=== PATIENT | male | born 1980 | race Caucasian/White ===

== ENCOUNTER 2024-01-04 20:52 | Inpatient (IN) | payer MEDICARE, SELFPAY ==
[2024-01-04] VITALS (8 sets, daily range): BP systolic 116–137; BP diastolic 72–88; BMI 27.2; BMI 27.1
[2024-01-04 17:22] LABS: ALT (SGPT) < 10 U/L (0-50); AST (SGOT) 29 U/L (17-59); Albumin 5.2 g/dl (3.5-5.0); Alkaline Phosphatase 98 U/L (38-126); Blood Urea Nitrogen 55 mg/dl (9-20); Calcium 9.2 mg/dl (8.4-10.2); Carbon Dioxide 23 mmol/L (22-30); Chloride 101 mmol/L (98-107); Creatine Phosphokinase 638 U/L (55-170); Glucose 95 mg/dl (70-99); Lipase 81 U/L (23-300); Potassium 3.5 mmol/L (3.5-5.1); Sodium 136 mmol/L (135-145); Total Bilirubin 0.9 mg/dl (0.2-1.3); Total Protein 7.5 g/dl (6.3-8.2); eGFR 14.06
[2024-01-04 17:23] LABS: Troponin I < 0.012 ng/ml
[2024-01-04 17:42] LABS: % Basophils 0.3 % (0-2); % Immature Granulocytes 0.4 % (0-0.5); % Lymphocytes 21.7 % (20.5-51.1); % Monocytes 7.9 % (1.7-9.3); % Neutrophils 67.7 % (42.2-75.2); Absolute Eosinophils 0.1 10^3/uL (0-0.7); Absolute Lymphocytes 1.5 10^3/uL (1.2-3.4); Absolute Monocytes 0.6 10^3/uL (0.1-0.6); Absolute Neutrophils 4.8 10^3/uL (1.4-6.5); Hematocrit 40.8 % (39.0-52.0); Hemoglobin 14.9 g/dL (13.0-18.0); Mean Corp Hgb Conc. 36.5 g/dL (33.0-37.0); Mean Corpuscular Hgb 32.1 pg (27.0-31.0); Mean Corpuscular Volume 87.9 fL (80.0-94.0); Nucleated Red Blood Cells % 0 % (-); Platelet Count 225 10^3/uL (130-400); Red Blood Cell Count 4.64 10^6/uL (4.70-6.10); Red Cell Dist. Width 12.2 % (11.5-14.5); White Blood Cell Count 7.1 10^3/uL (4.8-10.8)
[2024-01-04 19:02] LABS: Urine Albumin Negative (Neg - Trace); Urine Bilirubin Negative (Negative); Urine Character Clear (Clear); Urine Color Yellow; Urine Glucose Negative (Negative); Urine Ketone Negative (Negative); Urine Leukocyte Negative (Negative); Urine Nitrite Negative (Negative); Urine Occult Blood Negative (Negative); Urine Urobilinogen Negative (Neg - 1+)
--- NOTE | 2024-01-04 19:16 | ED.GENMED ---
History of Present Illness
General
Chief Complaint: Fainting/Passed Out
Source: patient and spouse
Exam Limitations: none
Time Seen by Provider: 01/04/24 18:23
History of Present Illness
History of Present Illness:
43-year-old male with history of Parkinson's disease, traumatic brain injury, history of substance abuse who presents with several episodes of 'fainting episodes'. Patient states this happened at work and happened at the gym. He has a little bit
of nausea the last couple days. Patient has been taking ibuprofen up to 800 mg 3 times a day. Patient also a couple months ago was put on hydrochlorothiazide/olmesartan
Past History
Past History
ED Past Medical History: HTN and Other (Parkinson's, anoxic brain injury after heroin overdose)
ED Past Surgical History: Orthopedic
Social History
Tobacco: Smoker
Drug: Former user
Personal: Single
Living: with family
Employment: Disabled
Family History
Family History: Other (Noncontributory)
Phy Exam
Physical Exam
Physical Exam:
CONSTITUTIONAL Patient alert and oriented to person, place and time. Well-appearing. Vital signs reviewed.
HEAD atraumatic, normocephalic.
EYES eyelids normal to inspection, Pupils equally round and reactive to light, Extraocular muscles intact, Conjunctiva normal, Sclera normal.
NECK normal range of motion, Trachea midline, no jugular venous distention.
RESPIRATORY CHEST No respiratory distress noted, Chest expansion equal, Bilateral breath sounds clear.
CARDIOVASCULAR regular rate and rhythm, Heart sounds normal.
ABDOMEN mild diffuse tenderness, Bowel sounds normal. No distention.
UPPER EXTREMITY range of motion normal, Motor strength normal, no cyanosis, no edema. Mild rigidity bilaterally
LOWER EXTREMITY range of motion normal, Motor strength normal, no cyanosis, no edema. Mild rigidity bilaterally
NEURO Speech normal but low in tone, No focal motor deficits, [place] coma scale 15, Memory normal, Cranial Nerves intact to screening exam.
SKIN skin warm, dry, and normal in color.
PSYCHIATRIC patient oriented to person place and time, Normal affect.
Course
Orders/Labs/Results
Orders:
Orders
01/04/24 16:43
EKG [Electrocardiogram (*1)] Urgent
Reason for Study: Vertigo / Dizzy
01/04/24 16:44
EKG- Treatment ONCE
01/04/24 16:45
CT Head W/o Iv Contrast Urgent
Comment:
Reason For Exam: passed out, unsure if hit head.
01/04/24 16:54
CBC/With Diff [Complete Blood Count/With Diff] Urgent
CMP [Comprehensive Metabolic Panel] Urgent
CPK [Creatine Phosphokinase] Urgent
Lipase Urgent
Troponin I Urgent
01/04/24 18:55
Urinalysis Reflex To Culture Urgent
Date Specimen was Collected: 01/04/24
Time Specimen was Collected: 18:53
01/04/24 19:09
0.9% Sodium Chloride 1000 ml [Nss] 1,000 ml IV BOLUS
Abnormal Lab Results
01/04/24
16:54
RBC 4.64 L 10^6/uL
(4.70-6.10)
MCH 32.1 H pg
(27.0-31.0)
BUN 55 H mg/dl
(9-20)
Creatinine 5.0 H* mg/dL
(0.7-1.3)
Creatine Kinase 638 H U/L
(55-170)
Albumin 5.2 H g/dl
(3.5-5.0)
01/04/24 16:54
01/04/24 16:54
Vital Signs
Initial and Last Documented VS:
Initial Vital Signs
Temp Pulse Resp BP Pulse Ox
98.0 F 65 18 122/76 100
01/04/24 16:38 01/04/24 16:38 01/04/24 16:38 01/04/24 16:38 01/04/24 16:38
Last Documented Vital Signs
Temp Pulse Resp BP Pulse Ox
98.0 F 65 18 116/87 100
01/04/24 16:38 01/04/24 16:38 01/04/24 16:38 01/04/24 19:00 01/04/24 19:15
MDM/Problems Addressed
MDM/Problems Addressed:
Parkinson's disease, acute renal failure, NSAID overuse
*Pulse Oximetry
Patient hypoxic: no
*EKG
Interpreted by ED Provider?: Yes
Rate: normal
Rhythm: sinus
Ramsay: normal axis
Interval: normal interval
Ischemia: no ischemia
*Kelp Or Seagrass Gatherer Interpretation
Rate: normal
Interpretation: normal
Rhythm: sinus
*Critical Care Note
Total Time (30-74mins, 75-104mins- exclusive of procedures): 30 minutes
Data Reviewed
Review of Other/Old Records Reveals: Labs (Labs reviewed from October 2023 showed a creatinine of 0.9 and BUN of 26 (patient's phone from [facility]))
Source: patient
Patient Management
Discussion with other providers: Hospitalist
Escalation/DeEscalation of care consider admission/obs:
43-year-old male with history of Parkinson's who has been taking a lot of ibuprofen daily. Also recently put on olmesartan/hydrochlorothiazide. IV fluids. Admit for acute renal failure as creatinine was 0.9 in October. Bladder scan performed and
empty
ED Attending Note
-
Portions of this chart may have been created with voice recognition software.� Occasional wrong word or��sound alike� substitutions may have occurred due to the inherent limitations of voice recognition software.
Discharge Plan
Departure
Patient Disposition: Admit
Date of Disposition: 01/04/24
Time of Disposition: 19:31
Admit to: Med/Surg
Presentation/result/management discussed w/ accepting MD/DO: Hospitalist
Discharge Problem:
Acute renal failure, Ibuprofen overuse
Prescriptions:
No Action
vilazodone [Viibryd] 40 MG tablet
40 mg PO DAILY
amantadine HCl 100 mg tablet
200 mg PO TID
carbidopa-levodopa 50-200 mg tablet extended release
3 tab PO TID
dextroamphetamine-amphetamine 20 mg tablet
40 mg PO DAILY
rasagiline 1 mg tablet
1 mg PO DAILY
melatonin 10 mg Tablet Extended Release
10 mg PO HS
ibuprofen [Advil] 200 mg Tablet
400 mg PO Q8HPRN PRN (Reason: mildpain)
gabapentin 600 mg Tablet
600 mg PO TID
carvedilol [Coreg] 12.5 mg Tablet
12.5 mg PO BID
aspirin 81 mg Tablet,Delayed Release (Dr/Ec)
81 mg PO DAILY
entacapone 200 mg Tablet
200 mg PO TID
dextroamphetamine-amphetamine [Adderall] 20 mg Tablet
20 mg PO NOON
olmesartan-hydrochlorothiazide [Benicar HCT] 40-12.5 mg Tablet
1 tab PO QPM
bupropion HCl [Wellbutrin XL] 150 mg Tablet Extended Release 24 Hr
450 mg PO DAILY
eszopiclone [Lunesta] 3 mg Tablet
3 mg PO HS
trazodone 100 mg Tablet
100 mg PO HSPRN PRN (Reason: if lunesta does not work)
Referrals:
Gurmeet Ha DO [Family Provider] -
Interventions
Interventions:
*Risk Screen - Suicide Last Done: 01/04/24 16:38
*General Assessment Last Done: 01/04/24 16:38
*Neglect/Abuse Screening Last Done: 01/04/24 18:00
ED- Fall Risk Assessment Last Done: 01/04/24 18:00
*ED COVID-19 Vaccine History Last Done: 01/04/24 18:00
SL-Ylmxje-Lhsfvkjaem Assessment Last Done: 01/04/24 18:00
ED- Cardiac Assessment Last Done: 01/04/24 18:00
ED- Neurological Assessment Last Done: 01/04/24 18:00
ED- Pulmonary Assessment Last Done: 01/04/24 18:00
Discharge Date and Time
Print Language: SIERRA LEONEAN
[2024-01-04] MEDS: NSS 1000 IV ×2 (19:20→22:42)
--- NOTE | 2024-01-04 20:17 | HPS.HSE ---
Family Physician
-
Family Physician: Gurmeet Ha
Chief Complaint
-
syncope
History of Present Illness
43-year-old male past medical history of Parkinson's disease, anoxic brain injury after heroin overdose, prior CVA, chronic body pain, presents with several episodes of fainting episodes. He was started on olmesartan/hydrochlorothiazide in August by
his business services vice president for elevated blood pressure. Over the past few months he has had intermittent fainting episodes lasting a few seconds that occur with exertion sometimes in the gym and even when he is resting or at work. He had several episodes in
the past week. Episodes are preceded by cloudiness in his head. He denies any associated chest pain or shortness of breath. He has been checking his blood pressure at home and it has been as low as 90s.
He has been taking up to 2400 milligrams of ibuprofen per day at times for chronic pain. He has decreased urinary output.
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
He uses medical marijuana. He smokes half a pack of cigarettes per day. He denies alcohol use.
Medical History
Past Medical History
Past Medical History: Reports Other (Parkinson's disease, anoxic brain injury after heroin overdose, prior CVA, chronic body pain,)
Past Surgical History: Reports Orthopedic (will in leg )
Social History
Tobacco: Smoker
Alcohol: None
Drug: Marijuana
Family History
Family History: Not pertinent
Allergies / Home Medications
Allergies reflects when Allergies were last updated in [facility].
Home Medications with original date entered in [facility]
Allergy/Medication List:
Allergies
Allergy/AdvReac Type Severity Reaction Status Date / Time
No Known Allergies Allergy Verified 01/04/24 16:36
Home Medications
vilazodone 40 mg tablet (Viibryd) 40 mg PO DAILY Mental Health/Anxiety 04/26/18
amantadine HCl 100 mg tablet 200 mg PO TID Neurological Condition 03/26/22
carbidopa ER 50 mg-levodopa 200 mg tablet,extended release 3 tab PO TID Neurological Condition 03/26/22
dextroamphetamine-amphetamine 20 mg tablet 40 mg PO DAILY MENTAL HEALTH 03/26/22
melatonin 10 mg tablet,extended release 10 mg PO HS Sleep 03/26/22
rasagiline 1 mg tablet 1 mg PO DAILY Neurological Condition 03/26/22
aspirin 81 mg tablet,delayed release 81 mg PO DAILY 01/04/24
bupropion HCl 150 mg 24 hr tablet, extended release (Wellbutrin XL) 450 mg PO DAILY 01/04/24
carvedilol 12.5 mg tablet (Coreg) 12.5 mg PO BID 01/04/24
dextroamphetamine-amphetamine 20 mg tablet (Adderall) 20 mg PO NOON 01/04/24
entacapone 200 mg tablet 200 mg PO TID 01/04/24
eszopiclone 3 mg tablet (Lunesta) 3 mg PO HS 01/04/24
gabapentin 600 mg tablet 600 mg PO TID 01/04/24
ibuprofen 200 mg tablet (Advil) 400 mg PO Q8HPRN PRN mildpain 01/04/24
olmesartan 40 mg-hydrochlorothiazide 12.5 mg tablet (Benicar HCT) 1 tab PO QPM 01/04/24
trazodone 100 mg tablet 100 mg PO HSPRN PRN if lunesta does not work 01/04/24
Review of Systems
-
History Source: Patient
A 12 point ROS was completed and negative except as noted: Yes
Constitutional: Reports No Symptoms
EENT: Reports No Symptoms
Respiratory: Reports No Symptoms
Cardiac: Reports No Symptoms
Abdomen/GI: Reports No Symptoms
: Reports No Symptoms
Musculoskeletal: Reports No Symptoms
Skin: Reports No Symptoms
Neurological: Reports No Symptoms
Endocrine: Reports No Symptoms
Hematologic/Lymphatic: Reports No Symptoms
Psych: Reports No Symptoms
Physical Exam
Vital Signs
Vital Signs
Temp Pulse Resp BP Pulse Ox
98.0 F 65 18 116/87 100
01/04/24 16:38 01/04/24 16:38 01/04/24 16:38 01/04/24 19:00 01/04/24 19:15
Physical Exam
General: Well Developed, Well Nourished and No Apparent Distress
HEENT: NormoCephalic, Moist mucous membranes and Atraumatic
Respiratory: Clear
Cardiac: S1/S2 and Regular Rhythm; No Murmur or Rub
GI: Soft, Non Tender, Non Distended and Normal Bowel Sounds; No Organomegaly
Rectal: Deferred by Provider
Musculoskeletal: No Clubbing, No Cyanosis and No Edema
Skin: No Rash
Neuro: Nonfocal/grossly intact
Laboratory Results
-
01/04/24 16:54
01/04/24 16:54
Laboratory Results
Total Bilirubin 0.9 mg/dl (0.2-1.3) 01/04/24 16:54
AST 29 U/L (17-59) 01/04/24 16:54
ALT < 10 U/L (0-50) 01/04/24 16:54
Alkaline Phosphatase 98 U/L (38-126) 01/04/24 16:54
Troponin I < 0.012 ng/ml 01/04/24 16:54
Lipase 81 U/L (23-300) 01/04/24 16:54
Data Reviewed
-
Lab Data: Labs Reviewed by me
Old Records: Reviewed
Impression/Plan
-
IMPRESSION:
PLAN:
# Syncopal episodes secondary to hypotension
# Acute kidney injury secondary to NSAIDs/olmesartan/hydrochlorothiazide and hypotension
-Telemetry monitoring
-Hold ibuprofen, olmesartan/hydrochlorothiazide
-IV fluids
-Check renal ultrasound
Parkinson's disease
-Continue amantadine
-Continue carbidopa-levodopa
-Continue entacapone
-Continue rasagiline
Anoxic brain injury after heroin overdose
History of CVA
-Continue aspirin
Chronic pain
-Continue gabapentin
-Tylenol for pain
-Does not tolerate opiates
-Needs to see pain management
Essential hypertension
-Continue Coreg
Anxiety/depression
-Continue bupropion
ADHD
-Continue Adderall
Insomnia
-Continue vilazodone
-Continue Lunesta
Smoker
-Nicotine patch
Medical marijuana use
Full code
DVT prophylaxis�heparin
Renal diet
--- NOTE | 2024-01-04 21:38 | PTCARENOTE ---
Pt arrived from ED via stretcher and ambulated to bed. Pt is AAOx3, VSS, and w/ a family member at bedside. Pt is resting comfortably w/ call villa within reach.
[2024-01-04] MEDS: COMTAN 200 MG PO (22:42)
[2024-01-04] MEDS: AMBIEN 10 MG PO (22:46)
[2024-01-04] MEDS: MELATONIN 10 MG PO (22:47)
[2024-01-04] MEDS: NEURONTIN 200 MG PO (22:47)
[2024-01-04] MEDS: SINEMET CR 50/200 (EXTENDED RELEASE) 3 TABLET PO (22:47)
[2024-01-04] MEDS: SYMMETREL 200 MG PO (23:09)
[2024-01-05] MEDS: DESYREL 100 MG PO (03:03)
[2024-01-05 03:30] VITALS: BP 116/64
[2024-01-05] MEDS: NSS 1000 IV ×3 (05:57→21:07)
[2024-01-05 07:30] VITALS: BP 111/72
[2024-01-05 07:57] LABS: Hematocrit 35.2 % (39.0-52.0); Hemoglobin 12.7 g/dL (13.0-18.0); Mean Corp Hgb Conc. 36.1 g/dL (33.0-37.0); Mean Corpuscular Hgb 32.4 pg (27.0-31.0); Mean Corpuscular Volume 89.8 fL (80.0-94.0); Mean Platelet Volume 10.2 fL (7.4-10.4); Platelet Count 191 10^3/uL (130-400); Red Blood Cell Count 3.92 10^6/uL (4.70-6.10); Red Cell Dist. Width 12.1 % (11.5-14.5); White Blood Cell Count 6.2 10^3/uL (4.8-10.8)
[2024-01-05 08:41] LABS: Blood Urea Nitrogen 42 mg/dl (9-20); Calcium 8.5 mg/dl (8.4-10.2); Carbon Dioxide 21 mmol/L (22-30); Chloride 108 mmol/L (98-107); Estimated Creatinine Clearance 40 ml/min; Glucose 98 mg/dl (70-99); Potassium 3.1 mmol/L (3.5-5.1); Sodium 138 mmol/L (135-145); eGFR 30.81
[2024-01-05] MEDS: SINEMET CR 50/200 (EXTENDED RELEASE) 3 TABLET PO ×3 (09:03→21:52)
[2024-01-05] MEDS: ADDERALL 40 MG PO (09:03)
[2024-01-05] MEDS: NICODERM TRANSDERMAL 7 MG TRANSDERM (09:03)
[2024-01-05] MEDS: COMTAN 200 MG PO ×3 (09:03→21:52)
[2024-01-05] MEDS: RASAGILINE MESYLATE 1 MG PO (09:03)
[2024-01-05] MEDS: SYMMETREL 200 MG PO ×3 (09:03→21:53)
[2024-01-05] MEDS: WELLBUTRIN XL (24 hour extended release) 450 MG PO (09:04)
[2024-01-05] MEDS: HEPARIN 5000 UNITS SC ×2 (09:04→21:53)
[2024-01-05] MEDS: NEURONTIN 200 MG PO ×3 (09:04→21:52)
[2024-01-05] MEDS: ASPIR LOW (ENTERIC COATED) 81 MG PO (09:04)
[2024-01-05] MEDS: COREG 12.5 MG PO ×2 (09:04→21:52)
[2024-01-05 11:30] VITALS: BP 115/68
[2024-01-05] MEDS: ADDERALL 20 MG PO (12:16)
[2024-01-05 15:20] VITALS: BP 127/71
--- NOTE | 2024-01-05 15:56 | W.PN.HOSP.TC ---
Today's Communication/Plan
-
Continue IVF, monitor hemodynamics
Hold KEVON inhibitor and HCTZ
Trend BMP and urine function
Assessment / Plan
Assessment / Plan
#Oliguric prerenal ADAIR
#Syncopal episode
#Hypotension
-Secondary to combination of hot work conditions, NSAIDs/HCTZ/ARB on his home regimen
-Presented with reduced urine output over 2 days, presyncopal episode, creatinine greater than 5
-No urine studies obtained, was started on IV fluids in the ED with creatinine downtrending to 2.6 today
-Urine output has improved and he states he is back to his normal self in that regard
-Blood pressure has improved, normal renal ultrasound; no arrhythmias seen on telemetry
Plan
-Continue with IVF and trend BMP daily while here
-Hold NSAIDs, HCTZ, ARB; monitor blood pressure
-Monitor I's and O's, urinary status
-orthostatic vital signs in the morning
-Telemetry to rule out arrhythmia
#Hypokalemia -- depletional
-Likely from reduced oral intake and diuretic therapy
-Provided 60 mill equivalent KCl today, will replete as needed and follow BMP
#Chronic hypertension
-Holding home HCTZ and ARB for reasons above, remains on carvedilol twice daily
-No known history of hypertensive cardiovascular systemic disease
-Will monitor and consider calcium channel nikolay if BP elevated
#H/O anoxic brain injury
#H/O CVA
#H/O IVDU with opiate withdrawal
-On exam he does have some cognitive slowing, can take a while to find his words
-Concerns from about chronic brain fog, occasional tremor/fainting spells at times
-Suspect that the symptoms could be related to hypotension similar to what brought him here
-No focal deficits or new neurological pathology present
DVT prophylaxis: Heparin subcu
Diet: Regular
CODE STATUS: Full code
Anticipated Discharge: 24 - 48 hours
Subjective/Interval History
-
Date of Service: January 05, 2024
Seen and examined at bedside. No acute events since admission. He states that he feels much better today than he did on previous days. Mentions that about 1 year ago he had a previous incident with lightheadedness that also involved being hot
conditions with his work. Does not recall if he had a kidney injury at that time as well. He denies chest pain or shortness of breath, denies nausea/vomiting/diarrhea, denies fevers or chills. He was initially oliguric upon arrival though states
he has been urinating adequately and close to his normal baseline
Objective Data
-
Labs:
Laboratory Results
01/05/24
07:21
WBC 6.2
Hgb 12.7 L
Hct 35.2 L
Plt Count 191
Sodium 138
Potassium 3.1 L
Chloride 108 H
Carbon Dioxide 21 L
BUN 42 H
Creatinine 2.6 H
Glucose 98
Calcium 8.5
Vital Signs:
Vital Signs
Temp Pulse Resp BP Pulse Ox
98.2 F 67 16 127/71 96
01/05/24 15:20 01/05/24 15:20 01/05/24 15:20 01/05/24 15:20 01/05/24 15:20
I&O
01/04/24 01/05/24 01/06/24
06:59 06:59 06:59
Intake Total 480 / 480
Balance 480 / 480
Review of Systems
-
History Source: Patient
All other systems: Reviewed and negative
Physical Exam
-
General: Well Nourished, No Apparent Distress, Comfortable and Conversant
HEENT: Normocephalic, Atraumatic, Moist Mucous Membranes and Anicteric
Respiratory: Clear to Auscultation and Non Labored Respirations; Negative Wheezes, Rales or Rhonchi
Cardiac: Regular Rhythm and S1/S2; Negative Murmur, Rub, JVD or Gallop
GI: Soft, Nontender, Nondistended and Normal Bowel Sounds
Genito-urinary: No Costovertebral Tender
Musculoskeletal: No Clubbing, No Cyanosis and No Edema
Skin: Warm, Dry and Other (Right-sided cervical tattoo); Negative Rash or Jaundice
Neuro: AO x 3, Nonfocal/Grossly Intact and Central Nerve's Intact
Psych: Calm
Data Reviewed
-
Ultrasound: Report Reviewed by me
Labs: Labs Reviewed by me and Discussed with Patient
[2024-01-05] MEDS: KCL 40 MEQ PO (16:23)
--- NOTE | 2024-01-05 17:13 | CM ---
Edmundo is a 43yo male with PMH of Parkinsons, anoxic brain injury after heroin overdose, prior CVA, chronic body pain with multiple fainting episodes. Medical workup in progress.
He lives with his S.O. 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
CM will follow to determine discharge planning needs based on medical and physical needs identified.
[2024-01-05 19:16] VITALS: BP 115/64
[2024-01-05] MEDS: KCL 20 MEQ PO (21:53)
[2024-01-05] MEDS: AMBIEN 10 MG PO (22:41)
[2024-01-05] MEDS: MELATONIN 10 MG PO (22:41)
[2024-01-05 23:45] VITALS: BP 128/71
[2024-01-06 03:00] VITALS: BP 129/76
[2024-01-06] MEDS: NSS 1000 IV (03:28)
[2024-01-06] MEDS: DESYREL 100 MG PO (04:34)
[2024-01-06 07:10] VITALS: BP 145/82
[2024-01-06 07:17] LABS: % Basophils 0.5 % (0-2); % Eosinophils 2.7 % (0-6); % Immature Granulocytes 0.3 % (0-0.5); % Lymphocytes 39.4 % (20.5-51.1); % Monocytes 7.3 % (1.7-9.3); % Neutrophils 49.8 % (42.2-75.2); Absolute Eosinophils 0.2 10^3/uL (0-0.7); Absolute Lymphocytes 2.3 10^3/uL (1.2-3.4); Absolute Monocytes 0.4 10^3/uL (0.1-0.6); Absolute Neutrophils 2.9 10^3/uL (1.4-6.5); Hematocrit 32.8 % (39.0-52.0); Hemoglobin 11.6 g/dL (13.0-18.0); Mean Corp Hgb Conc. 35.4 g/dL (33.0-37.0); Mean Corpuscular Hgb 31.8 pg (27.0-31.0); Mean Corpuscular Volume 89.9 fL (80.0-94.0); Mean Platelet Volume 10.5 fL (7.4-10.4); Nucleated Red Blood Cells % 0 % (-); Platelet Count 179 10^3/uL (130-400); Red Blood Cell Count 3.65 10^6/uL (4.70-6.10); Red Cell Dist. Width 12.1 % (11.5-14.5); White Blood Cell Count 5.9 10^3/uL (4.8-10.8)
[2024-01-06 07:41] LABS: Blood Urea Nitrogen 26 mg/dl (9-20); Calcium 8.7 mg/dl (8.4-10.2); Carbon Dioxide 23 mmol/L (22-30); Chloride 112 mmol/L (98-107); Estimated Creatinine Clearance 94 ml/min; Glucose 95 mg/dl (70-99); Magnesium 1.8 mg/dl (1.6-2.3); Sodium 139 mmol/L (135-145); eGFR > 60.00
[2024-01-06 08:00] LABS: Potassium 4.1 mmol/L (3.5-5.1)
[2024-01-06] MEDS: SYMMETREL 200 MG PO (10:28)
[2024-01-06] MEDS: RASAGILINE MESYLATE 1 MG PO (10:28)
[2024-01-06] MEDS: WELLBUTRIN XL (24 hour extended release) 450 MG PO (10:28)
[2024-01-06] MEDS: SINEMET CR 50/200 (EXTENDED RELEASE) 3 TABLET PO (10:28)
[2024-01-06] MEDS: COMTAN 200 MG PO (10:28)
[2024-01-06] MEDS: NEURONTIN 200 MG PO (10:28)
[2024-01-06] MEDS: COREG 12.5 MG PO (10:28)
[2024-01-06] MEDS: HEPARIN 5000 UNITS SC (10:29)
[2024-01-06] MEDS: ASPIR LOW (ENTERIC COATED) 81 MG PO (10:29)
[2024-01-06] MEDS: ADDERALL 40 MG PO (10:30)
[2024-01-06] MEDS: NICODERM TRANSDERMAL TRANSDERM (10:32)
--- NOTE | 2024-01-06 11:00 | W.PN.HOSP.TC ---
Today's Communication/Plan
-
Discharge home
Encourage oral hydration
Discontinue NSAIDs, HCTZ, olmesartan
Outpatient neurology follow-up
Assessment / Plan
Assessment / Plan
#Oliguric prerenal ADAIR
#Syncopal episode
#Hypotension
-Secondary to combination of hot work conditions, NSAIDs/HCTZ/ARB on his home regimen
-Presented with reduced urine output over 2 days, presyncopal episode, creatinine greater than 5
-No urine studies obtained, was started on IV fluids in the ED with creatinine downtrending to 2.6 today
-Urine output has improved and he states he is back to his normal self in that regard
-Blood pressure has improved, normal renal ultrasound
-Orthostats were negative, telemetry consistently with NSR
Plan
-Continue with IVF and trend BMP daily while here
-Hold NSAIDs, HCTZ, ARB; monitor blood pressure
-Monitor I's and O's, urinary status
#H/O anoxic brain injury
#H/O CVA
#H/O IVDU with opiate OD
-On exam he does have some cognitive slowing, can take a while to find his words
-Concerns from about chronic brain fog, occasional tremor/fainting spells at times
-Suspect that the symptoms could be related to hypotension similar to what brought him here
-No signs of seizures/tremors while here, no new focal neurological deficits
Plan
-Provide outpatient prescription for MRI brain without contrast
-Provide referral for in network neurologist if needed
#Chronic hypertension
-Holding home HCTZ and ARB for reasons above, remains on carvedilol twice daily
-No known history of hypertensive cardiovascular systemic disease
-Will monitor and consider calcium channel nikolay if BP elevated
DVT prophylaxis: Heparin subcu
Diet: Regular
CODE STATUS: Full code
Anticipated Discharge: Today
Subjective/Interval History
-
Date of Service: January 06, 2024
No acute events overnight. Patient was sleeping upon time of my assessment. Woke up properly though seemed a little bit lethargic. He denied fevers or chills, denied chest pain, denied shortness of breath. States that he feels much better than
when he came into the hospital.
I spoke with him about chronic sounding neurological issues that include times where he is absent, occasional tremors, chronic brain fog. Told him that there is likely no acute neurological processes, has not had any signs of seizure or strokelike
events while here. I did notice 1 episode yesterday when he had difficulty finding words though he quickly regained his cognition, had no postictal type symptoms.
Ultimately, he should follow-up with his neurologist. States that his neurologist is difficult to get to the office with, I will provide him for a local referral and give him an MRI of the brain without contrast to have done prior to that visit.
Objective Data
-
Labs:
Laboratory Results
01/06/24
06:45
WBC 5.9
Hgb 11.6 L
Hct 32.8 L
Plt Count 179
Sodium 139
Potassium 4.1 D
Chloride 112 H
Carbon Dioxide 23
BUN 26 H
Creatinine 1.1
Glucose 95
Calcium 8.7
Vital Signs:
Vital Signs
Temp Pulse Resp BP Pulse Ox
98.3 F 62 16 145/82 92
01/06/24 07:10 01/06/24 07:10 01/06/24 07:10 01/06/24 07:10 01/06/24 07:10
I&O
01/05/24 01/06/24 01/07/24
06:59 06:59 06:59
Intake Total 480 / 480 2240 / 2240
Output Total 500 / 500
Balance 480 / 480 1740 / 1740
Review of Systems
-
History Source: Patient
All other systems: Reviewed and negative
Physical Exam
-
General: Well Developed, Well Nourished and Comfortable
HEENT: Normocephalic, Atraumatic, Moist Mucous Membranes and Anicteric
Respiratory: Clear to Auscultation and Non Labored Respirations; Negative Wheezes, Rales or Rhonchi
Cardiac: Regular Rhythm and S1/S2; Negative Murmur, Rub, JVD or Gallop
GI: Soft, Nontender, Nondistended, Normal Bowel Sounds and No Hepatosplenomegaly
Musculoskeletal: No Clubbing, No Cyanosis, No Edema and Other (No gross deformities)
Skin: Warm and Dry; Negative Rash or Jaundice
Neuro: AO x 3, Nonfocal/Grossly Intact and Central Nerve's Intact; Negative Tremors
Data Reviewed
-
Labs: Labs Reviewed by me and Discussed with Patient
--- NOTE | 2024-01-06 11:15 | W.DCSUMMARY ---
Discharge Summary
Discharge Data
Date of Admission: 01/04/24
Date of Discharge: 01/06/24
-
Pending Results: No
Additional Pending Results:
BMP in 5 days after discharge
Hospital Course
43-year-old male with H/O anoxic brain injury/CVA, Parkinson's disease, hypertension, history of intravenous drug use that presented with syncope/presyncopal episodes that occurred in the context of severe dehydration, nephrotoxic antihypertensive
regimen, NSAID use. Was noted to be working outside in the heat when symptoms worsened. Developed presyncope, came into the ED. Was found to have serum creatinine near 5 with known baseline being normal. Home medications (frequent NSAIDs, HCTZ,
olmesartan) were held on admission and he was started with IV fluids. Renal ultrasound without any signs of obstructive hydronephrosis. His renal function returned to normal after 2 days of IV fluids.
Also mentioned chronic neurological issues such as intermittent tremor, chronic mental fog, times of cognitive delay that raise concern for absence seizure's. I did notice 1 episode where he took a while to find his words, then asked what we were
talking about, however he was then able to hold conversation. No signs or symptoms of postictal phase. I suspect these are chronic issues concerning his history of anoxic brain injury. I provided referral for neurology as outpatient and
prescription for MRI brain without contrast to be had after discharge.
Discharge Plan
-
Patient Disposition: Home (Routine Discharge)
Discharge Diagnosis/Procedures: Oliguric prerenal ADAIR
Hypotension
Syncope/presyncope
Condition: Fair
Diet: No restrictions
Additional Diets: 64 ounce water daily
Activity: As tolerated
Driving Restrictions: As prior to admission
Bathing Restrictions: None
Blood Work: BMP in 5 days after discharge, recheck renal function
Others Tests: MRI brain without contrast, have results sent to neurologist
Referrals:
Kei Palacios MD [Active] - in less than 1 week (If new neurologist needed)
Gurmeet Ha DO [Family Provider] -
Prescriptions:
New
nicotine 7 mg/24 hr Patch 24 Hour
7 mg transdermal DAILY Qty: 10 0RF
Continued
vilazodone [Viibryd] 40 MG tablet
40 mg PO DAILY
amantadine HCl 100 mg tablet
200 mg PO TID
carbidopa-levodopa 50-200 mg tablet extended release
3 tab PO TID
dextroamphetamine-amphetamine 20 mg tablet
40 mg PO DAILY
rasagiline 1 mg tablet
1 mg PO DAILY
melatonin 10 mg Tablet Extended Release
10 mg PO HS
gabapentin 600 mg Tablet
600 mg PO TID
carvedilol [Coreg] 12.5 mg Tablet
12.5 mg PO BID
aspirin 81 mg Tablet,Delayed Release (Dr/Ec)
81 mg PO DAILY
entacapone 200 mg Tablet
200 mg PO TID
dextroamphetamine-amphetamine [Adderall] 20 mg Tablet
20 mg PO NOON
bupropion HCl [Wellbutrin XL] 150 mg Tablet Extended Release 24 Hr
450 mg PO DAILY
eszopiclone [Lunesta] 3 mg Tablet
3 mg PO HS
trazodone 100 mg Tablet
100 mg PO HSPRN PRN (Reason: if lunesta does not work)
Discontinued
ibuprofen [Advil] 200 mg Tablet
400 mg PO Q8HPRN PRN (Reason: mildpain)
olmesartan-hydrochlorothiazide [Benicar HCT] 40-12.5 mg Tablet
1 tab PO QPM
Discharge Orders:
Discharge Patient (As Directed); Ordered 01/06/24
Ordered By: David Dyer
Discharge Date and Time
Print Language: MALAWIAN
[2024-01-06 11:33] VITALS: BP 126/84
[2024-01-06] MEDS: ADDERALL 20 MG PO (13:05)
--- NOTE | 2024-01-06 13:49 | CM ---
Patient seen at bedside with physician. Plan is for discharge home with no needs at this time. CM will continue to follow for discharge planning needs.
Plan; home with no needs
== END 2024-01-06 14:01 | disposition home or self-care (01) | DRG 684 ==
LOC: 4 EAST ACU 20:52
PROVIDERS: Emergency Medicine; ADMITTING PHYSICIAN Hospitalist; ATTENDING PHYSICIAN Internal Medicine; EMERGENCY PHYSICIAN Emergency Medicine; FAMILY PHYSICIAN Family Medicine
DX: N17.9 Acute kidney failure, unspecified (principal); I10 Essential (primary) hypertension; G20.A1 Parkinson's disease without dyskinesia, without mention of fluctuations; E86.0 Dehydration; I95.9 Hypotension, unspecified
CPT/HCPCS: 70450; 76770; 80048; 80053; 81003; 82550; 83690; 83735; 84484; 85025; 85027; 87070; 93005; 96360; 99291

== ENCOUNTER → 2024-01-18 13:34 | Outpatient (REF) | payer MEDICARE, OTHER, SELFPAY | LOC: HWRAD 13:34 | PROVIDERS: ATTENDING PHYSICIAN Family Medicine | DX: M54.50 Low back pain, unspecified (principal) | CPT/HCPCS: 72110 ==

== ENCOUNTER 2024-02-06 08:04 | Outpatient (RCR) | payer MEDICARE, OTHER, SELFPAY | END 2024-02-06 23:59 | disposition home or self-care (01) | LOC: RPT 08:04 | PROVIDERS: ATTENDING PHYSICIAN Psychiatry & Neurology Neurology; FAMILY PHYSICIAN Family Medicine | DX: G20.C Parkinsonism, unspecified (principal); Z73.6 Limitation of activities due to disability | CPT/HCPCS: 97110; 97112; 97163; 97530 ==

== ENCOUNTER → 2024-03-07 08:22 | Outpatient (REF) | payer MEDICARE, OTHER, SELFPAY | LOC: EMG 08:22 | PROVIDERS: ATTENDING PHYSICIAN Physical Medicine & Rehabilitation Pain Medicine; FAMILY PHYSICIAN Family Medicine | DX: G89.29 Other chronic pain (principal); M54.50 Low back pain, unspecified; R20.0 Anesthesia of skin; R20.2 Paresthesia of skin | CPT/HCPCS: 95886; 95911 ==

== ENCOUNTER 2024-03-11 06:57 | Outpatient (RCR) | payer MEDICARE, OTHER, SELFPAY | END 2024-03-11 23:59 | disposition home or self-care (01) | LOC: RST 06:57 | PROVIDERS: ATTENDING PHYSICIAN Psychiatry & Neurology Neurology; FAMILY PHYSICIAN Family Medicine | DX: G20.C Parkinsonism, unspecified (principal); R47.1 Dysarthria and anarthria; R41.9 Unspecified symptoms and signs involving cognitive functions and awareness | CPT/HCPCS: 92507; 92522; 96125; 97010; 97110; 97112; 97129; 97130; 97140; 97166; 97530; 97535 ==

== ENCOUNTER 2024-04-05 07:06 | Outpatient (RCR) | payer MEDICARE, OTHER, SELFPAY | END 2024-04-05 23:59 | disposition home or self-care (01) | LOC: RST 07:06 | PROVIDERS: ATTENDING PHYSICIAN Psychiatry & Neurology Neurology; FAMILY PHYSICIAN Family Medicine | DX: Z73.6 Limitation of activities due to disability (principal); R47.1 Dysarthria and anarthria; R41.9 Unspecified symptoms and signs involving cognitive functions and awareness; G21.8 Other secondary parkinsonism | CPT/HCPCS: 92507; 97010; 97110; 97112; 97129; 97130; 97140; 97530 ==

== ENCOUNTER 2024-05-02 16:49 | Emergency (ER) | payer SELFPAY ==
[2024-05-02 16:50] VITALS: BP 162/98
[2024-05-02 16:51] VITALS: BP 162/98
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
[2024-05-02 17:00] VITALS: BP 161/101
[2024-05-02 17:21] VITALS: BMI 27.4
[2024-05-02 17:42] VITALS: BP 143/104
== END 2024-05-02 17:50 | disposition home or self-care (01) ==
LOC: EMR 16:49
PROVIDERS: EMERGENCY PHYSICIAN Student in an Organized Health Care Education/Training Program; FAMILY PHYSICIAN Family Medicine
DX: S09.90XA Unspecified injury of head, initial encounter (principal); V89.2XXA Person injured in unspecified motor-vehicle accident, traffic, initial encounter; Y92.410 Unspecified street and highway as the place of occurrence of the external cause; I10 Essential (primary) hypertension; G20.A1 Parkinson's disease without dyskinesia, without mention of fluctuations; G93.1 Anoxic brain damage, not elsewhere classified; F17.200 Nicotine dependence, unspecified, uncomplicated
CPT/HCPCS: 99284; 70450

== ENCOUNTER 2024-05-10 09:15 | Outpatient (RCR) | payer OTHER, SELFPAY | END 2024-05-10 23:59 | disposition home or self-care (01) | LOC: RST 09:15 | PROVIDERS: ATTENDING PHYSICIAN Psychiatry & Neurology Neurology; FAMILY PHYSICIAN Family Medicine | DX: G20.C Parkinsonism, unspecified (principal); R47.1 Dysarthria and anarthria; R41.89 Other symptoms and signs involving cognitive functions and awareness; Z73.6 Limitation of activities due to disability | CPT/HCPCS: 92507; 97110; 97112; 97129; 97130; 97140; 97530 ==

== ENCOUNTER 2024-06-04 09:14 | Outpatient (RCR) | payer OTHER, SELFPAY | END 2024-06-06 07:40 | disposition home or self-care (01) | LOC: RST 09:14 | PROVIDERS: ATTENDING PHYSICIAN Psychiatry & Neurology Neurology; FAMILY PHYSICIAN Family Medicine | DX: G20.C Parkinsonism, unspecified (principal); R47.1 Dysarthria and anarthria; R41.89 Other symptoms and signs involving cognitive functions and awareness; Z73.6 Limitation of activities due to disability | CPT/HCPCS: 92507; 97110; 97112; 97129; 97130; 97140 ==

== ENCOUNTER → 2024-07-10 16:22 | Outpatient (REF) | payer OTHER, SELFPAY | LOC: RAD 16:22 | PROVIDERS: ATTENDING PHYSICIAN Internal Medicine Rheumatology; FAMILY PHYSICIAN Family Medicine | DX: M79.641 Pain in right hand (principal); M79.642 Pain in left hand | CPT/HCPCS: 72050; 72072; 72100; 72202; 73130 ==

== ENCOUNTER 2024-08-14 09:35 | Outpatient (RCR) | payer OTHER, SELFPAY | END 2024-09-09 09:38 | disposition home or self-care (01) | LOC: RST 09:35 | PROVIDERS: ATTENDING PHYSICIAN Family Medicine | DX: G20.C Parkinsonism, unspecified (principal); R47.1 Dysarthria and anarthria; R41.9 Unspecified symptoms and signs involving cognitive functions and awareness ==

== ENCOUNTER 2024-09-04 13:10 | Outpatient (RCR) | payer MEDICARE, OTHER, SELFPAY | END 2024-09-04 23:59 | disposition home or self-care (01) | LOC: RPT 13:10 | PROVIDERS: ATTENDING PHYSICIAN Orthopaedic Surgery; FAMILY PHYSICIAN Family Medicine | DX: M25.511 Pain in right shoulder (principal); Z73.6 Limitation of activities due to disability; M62.81 Muscle weakness (generalized); R20.2 Paresthesia of skin; R20.0 Anesthesia of skin; G20.A1 Parkinson's disease without dyskinesia, without mention of fluctuations | CPT/HCPCS: 97110; 97112; 97162; 97530 ==

== ENCOUNTER 2024-10-09 14:04 | Outpatient (RCR) | payer OTHER, SELFPAY | END 2024-10-09 23:59 | disposition home or self-care (01) | LOC: RPT 14:04 | PROVIDERS: ATTENDING PHYSICIAN Orthopaedic Surgery; FAMILY PHYSICIAN Family Medicine | DX: M25.511 Pain in right shoulder (principal); Z73.6 Limitation of activities due to disability; M62.81 Muscle weakness (generalized); G20.A1 Parkinson's disease without dyskinesia, without mention of fluctuations; I69.398 Other sequelae of cerebral infarction | CPT/HCPCS: 97110; 97112; 97140; 97530 ==

== ENCOUNTER 2024-10-16 09:00 | Outpatient (RCR) | payer OTHER, SELFPAY | END 2024-10-16 23:59 | disposition home or self-care (01) | LOC: RST 09:00 | PROVIDERS: ATTENDING PHYSICIAN Orthopaedic Surgery; FAMILY PHYSICIAN Family Medicine | DX: G20.C Parkinsonism, unspecified (principal) ==

== ENCOUNTER 2024-11-08 10:07 | Outpatient (RCR) | payer OTHER, SELFPAY | END 2024-11-08 23:59 | disposition home or self-care (01) | LOC: RPT 10:07 | PROVIDERS: ATTENDING PHYSICIAN Orthopaedic Surgery; FAMILY PHYSICIAN Family Medicine | DX: M25.511 Pain in right shoulder (principal); Z73.6 Limitation of activities due to disability; M62.81 Muscle weakness (generalized); G20.A1 Parkinson's disease without dyskinesia, without mention of fluctuations; I69.398 Other sequelae of cerebral infarction | CPT/HCPCS: 97110; 97112; 97140; 97530 ==

== ENCOUNTER 2024-12-05 08:10 | Outpatient (RCR) | payer OTHER, SELFPAY | END 2024-12-05 23:59 | disposition home or self-care (01) | LOC: RPT 08:10 | PROVIDERS: ATTENDING PHYSICIAN Orthopaedic Surgery; FAMILY PHYSICIAN Family Medicine | DX: M25.511 Pain in right shoulder (principal); M62.81 Muscle weakness (generalized); G20.A1 Parkinson's disease without dyskinesia, without mention of fluctuations; I69.398 Other sequelae of cerebral infarction; Z73.6 Limitation of activities due to disability | CPT/HCPCS: 97110; 97530 ==

== ENCOUNTER 2025-04-17 00:08 | Emergency (ER) | payer OTHER, SELFPAY ==
[2025-04-17 00:15] VITALS: BP 176/110
--- NOTE | 2025-04-17 00:40 | ED.GENMED ---
History of Present Illness
General
Chief Complaint: Oral/Mouth Problem
Time Seen by Provider: 04/17/25 00:40
History of Present Illness
History of Present Illness:
FOCUSED PAST MEDICAL HISTORY
- Parkinsonism, TBI, high blood pressure, history of subs abuse
REVIEW OF OLD RECORDS
- I reviewed records, the patient has been getting physical therapy here over the past year
Note:
CHIEF COMPLAINT(S)
Swelling and pain in the mouth with presumed infection.
HISTORY OF PRESENT ILLNESS
The patient is a 45-year-old male presenting with swelling and pain in the mouth, concerning for infection, potentially originating from dental issues. These symptoms have made it difficult for the patient to eat, sleep, and work. Recently, the
patient sought care at a dental center, where they identified significant issues with teeth numbered 3, 5, and 8, among others. The patient has a significant history of substance abuse, which raises concerns about pain management compliance.
Additionally, the patient reported being on Augmentin (amoxicillin-clavulanate) and dexamethasone, initiated after a recent visit to an urgent care facility a week and a half ago, without significant improvement. The patient previously experienced
an acute kidney injury, which contraindicates the use of nonsteroidal anti-inflammatory drugs (NSAIDs) and possibly limits the use of contrast. There is also an interest in further intervention like oral surgery but logistical challenges with
insurance and the availability of services.
PAST MEDICAL AND SURGICAL HISTORY
- Acute kidney injury.
CHRONIC MEDICAL CONDITIONS SIGNIFICANTLY AFFECTING CARE
- History of substance abuse.
SOCIAL DETERMINANTS AFFECTING HEALTH
- History of substance abuse which may impact pain management and compliance with treatment.
MEDICATIONS
- Augmentin (Amoxicillin-Clavulanate) for approximately 1.5 weeks.
- Dexamethasone for inflammation.
REVIEW OF SYSTEMS
- Oral cavity: Significant dental issues leading to pain and swelling.
- Gastrointestinal: Difficulty eating.
- General: Difficulty sleeping and working due to the oral pain and infection.
PHYSICAL EXAM
General: Alert, no acute distress. Somewhat of a flat affect, appears fairly comfortable
Skin: Warm, dry.
Head: Normocephalic, atraumatic.
Neck: Supple, trachea midline.
Eye Ears, Nose, Mouth and Throat: Markedly poor dentition with several caries, some gingival inflammation, no facial abscess palpable
Cardiovascular: Normal peripheral perfusion, No edema.
Respiratory: Respirations are non-labored.
Gastrointestinal: Abdomen nondistended.
Back: Normal range of motion, Normal alignment.
Musculoskeletal: Normal range of motion, normal strength.
Neurological: Alert and oriented to person, place, time, and situation, No focal neurological deficit observed.
Psychiatric: Cooperative, appropriate mood & affect.
PLAN
- Administer an intravenous dose of clindamycin to address the oral infection while in the emergency department.
- Discuss the case with oral surgery for possible input on further management.
- Consider basic blood work to monitor kidney function due to the history of acute kidney injury if future procedures requiring contrast are considered.
- Advise follow-up with dental services for potential extractions and future prosthetic decisions once the infection is controlled.
- Educate the patient on the importance of avoiding opioids due to history of substance abuse and potential for misuse.
DIFFERENTIAL DIAGNOSIS
The Differential Diagnosis includes, in no particular order and is not limited to:
- Dental abscess
- Periapical abscess
- Alveolar osteitis (dry socket)
- Osteomyelitis of the jaw
- Sinusitis with dental source
- Periodontitis
- Oral cellulitis
- Gilmar�s angina
- Gingivitis
- Temporomandibular joint disorder
Disposition:
SUMMARY OF ENCOUNTER
The patient, a 45-year-old male, presented to the emergency department with swelling and pain in the mouth, concerning for an oral infection likely related to significant dental issues. The patient has a history of substance abuse, complicating pain
management considerations. Recent attempts to manage the condition with amoxicillin-clavulanate and dexamethasone have not provided significant relief, and the patient has difficulty eating and sleeping due to the pain. In the emergency department,
clindamycin, a potent antibiotic, was considered for prescription due to an elevated white blood cell count and past ineffective treatment. There is an elevated risk with continued antibiotic use due to potential adverse effects like Clostridioides
difficile infection. Contact information for an oral surgeon, Dr. Guzman Raygoza, was provided for further consultation regarding potential oral surgery, acknowledging insurance challenges with [id number] providers.
DISPOSITION
Discharge.
ASSESSMENT
The patient presents with symptoms indicative of a dental infection, potentially involving teeth previously identified as problematic. Elevated white blood cell count suggests an ongoing infection. Considering the patients history of substance
abuse, careful management of pain and antibiotics is necessary.
EMERGENCY TREATMENTS ADMINISTERED
Intravenous clindamycin was administered for the oral infection while in the emergency department.
MANAGEMENT OF THE PATIENTS CARE WAS DISCUSSED WITH
The case was discussed with an oral surgeon, Dr. Guzman Raygoza, for follow-up consultation regarding potential surgical intervention for the dental issues.
PLAN
The patient was advised to follow up with oral surgery for further management of dental issues after discussing logistical challenges with insurance regarding [id number] providers. Clindamycin was prescribed, and probiotics like Florastor were
recommended to balance gut go during antibiotic treatment. Educated on avoiding non-recommended analgesics, particularly opioids and NSAIDs due to history and contraindications.
INDEPENDENT REVIEW OF LABS AND INTERPRETATION OF TESTS
My independent review of CBC reveals leukocytosis with a white blood cell count of 14,000, consistent with an active infection and steroid use.
PATIENT EDUCATION AND COUNSELING
The patient was educated on the risks associated with prolonged antibiotic use, including the potential for Clostridioides difficile infection. The importance of following up with dental services and maintaining gut health with probiotics was
emphasized. Additionally, the patient was informed about the implications of his substance abuse history on medication compliance and pain management.
FOLLOW-UP INSTRUCTIONS
The patient should contact oral surgeon Dr. Guzman Raygoza for an appointment. Follow-up with dental services is crucial for potential extractions and prosthetic decisions once the infection is managed.
MEDICATION RECONCILIATION
Clindamycin was prescribed to the patient for infection management in accordance with the elevated white blood cell count indicating an infection.
MEDICAL DECISION MAKING
-Chronic conditions affecting care include history of substance abuse. Differential Diagnosis includes dental abscess, periapical abscess, alveolar osteitis, osteomyelitis of the jaw, sinusitis with dental source, periodontitis, oral cellulitis,
Gilmar�s angina, gingivitis, temporomandibular joint disorder.
-Data:
Category 1
My independent review of CBC indicated leukocytosis with a white blood cell count of 14,000.
Category 2
No additional sources apart from the patient were mentioned for information.
Category 3
Management of the patients care was discussed with an oral surgeon for further intervention.
-Risk:
Prescription drug management initiated with clindamycin for infection.
Consideration of Admission/Observation: Escalation of care including admission/observation was considered given the complexity and risk of the patients presenting complaint, exam findings, and underlying comorbidities. However, ultimately, the
patient is deemed safe for outpatient management with close follow-up, as the work-up is reassuring and does not reveal any acute life/organ-threatening processes. The patients symptoms are well controlled upon reevaluation, reexamination is
reassuring, vitals are stable, and the patient is agreeable with discharge and reliable for follow-up. Care significantly affected by social determinants of health, primarily the patients history of substance abuse which may impact compliance with
treatment and pain management.
DIAGNOSIS
- Dental abscess (K04.7)
- Substance abuse complicating care (F19.10)
- Acute oral infection (K12.2)
I sent a message to Dr. Yousif for [facility] to help arrange closer outpatient follow-up however this message was not immediately responded to. We gave an IV dose of clindamycin and I did send a prescription for oral clindamycin to his pharmacy. We
talked about using a probiotic to help prevent C. difficile infection. There is no palpable facial abscess on examination and I do not feel that CT imaging will alter course. The significant other indicates that the patient did have a recent CT.
One of the big complicating factors is lack of good insurance or lack of financial capability to have his needed dental procedures performed. No clear indication to for admission to the hospital.
Past History
Past History
ED Past Medical History: HTN and Other (Parkinson's, anoxic brain injury after heroin overdose)
ED Past Surgical History: Orthopedic
Social History
Tobacco: Smoker
Drug: Former user
Personal: Single
Living: with family
Employment: Disabled
Family History
Family History: Other (Noncontributory)
Phy Exam
Physical Exam
Physical Exam:
See HPI
Course
Orders/Labs/Results
Orders:
Orders
04/17/25 00:57
Basic Metabolic Panel Urgent
Complete Blood Count/With Diff Urgent
04/17/25 01:07
Clindamycin Phosphate [Cleocin] 300 mg 0.9% Sodium Chloride [Nss] 50 ml IV NOW
04/17/25 01:49
Ketorolac [Toradol] 15 mg IV NOW STA
04/17/25 02:12
Viscous Lidocaine 2% [Xylocaine Viscous Cup] 15 ml PO Q3HPRN PRN
Abnormal Lab Results
04/17/25
00:57
WBC 14.3 H 10^3/uL
(4.8-10.8)
Abs Immat Gran (auto) 0.4 H 10^3/uL
(0-0.05)
Absolute Neuts (auto) 9.3 H 10^3/uL
(1.4-6.5)
Absolute Monos (auto) 1.1 H 10^3/uL
(0.1-0.6)
Immature Gran % 2.9 H %
(0-0.5)
BUN 21 H mg/dl
(9-20)
04/17/25 00:57
04/17/25 00:57
Vital Signs
Initial and Last Documented VS:
Initial Vital Signs
Temp Pulse Resp BP Pulse Ox
36.3 C 97 18 176/110 99
04/17/25 00:15 04/17/25 00:15 04/17/25 00:15 04/17/25 00:15 04/17/25 00:15
Last Documented Vital Signs
Temp Pulse Resp BP Pulse Ox
36.3 C 90 18 152/100 99
04/17/25 00:15 04/17/25 01:02 04/17/25 01:02 04/17/25 01:03 04/17/25 00:42
*Pulse Oximetry
SaO2: 99
Oxygen Mode of Delivery: Room air
Patient hypoxic: no
*Critical Care Note
Total Time (30-74mins, 75-104mins- exclusive of procedures): Not Applicable
ED Attending Note
-
Portions of this chart may have been created with voice recognition software.� Occasional wrong word or��sound alike� substitutions may have occurred due to the inherent limitations of voice recognition software.
Discharge Plan
Departure
Patient Disposition: Home (Routine Discharge)
Date of Disposition: 04/17/25
Time of Disposition: 02:13
Patient with high blood pressure during this ER visit?: Yes
Discharge Problem:
Need for assessment by dentistry for poor dentition
Instructions: Tooth Abscess (DC), Dental Pain (DC), BLOOD PRESSURE
Prescriptions:
New
clindamycin HCl [Cleocin HCl] 300 mg capsule
300 mg PO TID 7 Days Qty: 21 0RF
No Action
vilazodone [Viibryd] 40 MG tablet
40 mg PO DAILY
amantadine HCl 100 mg tablet
200 mg PO TID
carbidopa-levodopa 50-200 mg tablet extended release
3 tab PO TID
dextroamphetamine-amphetamine 20 mg tablet
40 mg PO DAILY
rasagiline 1 mg tablet
1 mg PO DAILY
melatonin 10 mg Tablet Extended Release
10 mg PO HS
gabapentin 600 mg Tablet
600 mg PO TID
carvedilol [Coreg] 12.5 mg Tablet
12.5 mg PO BID
aspirin 81 mg Tablet,Delayed Release (Dr/Ec)
81 mg PO DAILY
entacapone 200 mg Tablet
200 mg PO TID
dextroamphetamine-amphetamine [Adderall] 20 mg Tablet
20 mg PO NOON
bupropion HCl [Wellbutrin XL] 150 mg Tablet Extended Release 24 Hr
450 mg PO DAILY
eszopiclone [Lunesta] 3 mg Tablet
3 mg PO HS
trazodone 100 mg Tablet
100 mg PO HSPRN PRN (Reason: if lunesta does not work)
nicotine 7 mg/24 hr Patch 24 Hour
7 mg transdermal DAILY Qty: 10 0RF
Referrals:
Guzman Yuosif MD, DDS [Active, Oral Surgery]
Gurmeet Ha, DO [Family Provider, Family Practice]
Activity Restrictions/Additional Instructions:
Your white blood cell count is slightly high at 14.3 but you do not have a fever. It is very common for white blood cell count to be elevated after using steroids. We did give IV Toradol and IV clindamycin tonight. I am sending a prescription for
clindamycin to your pharmacy. Your kidney function is normal therefore I feel that you can take NSAIDs. Consider taking Florastor or some [id number] probiotic to help prevent C. difficile infection.
I strongly recommend that you follow-up with oral surgeon/specialized dentist for more definitive management. I did reach out to Dr. Yousif but he did not respond tonight. I have given you his contact information.
Interventions
Interventions:
*Risk Screen - Suicide Last Done: 04/17/25 00:19
*General Assessment Last Done: 04/17/25 00:19
*Neglect/Abuse Screening Last Done: 04/17/25 00:19
*ED- Fall Risk Assessment Last Done: 04/17/25 00:19
*ED COVID-19 Vaccine History Last Done: 04/17/25 00:19
*ED Influenza Vaccine History Last Done: 04/17/25 00:19
Discharge Date and Time
Print Language: SERBIAN
[2025-04-17 01:02] VITALS: BP 152/100
[2025-04-17 01:03] VITALS: BP 152/100
[2025-04-17] MEDS: CLEOCIN 52 MG IV (01:17)
[2025-04-17 01:22] LABS: Hematocrit 44.1 % (39.0-52.0); Hemoglobin 14.6 g/dL (13.0-18.0); Mean Corp Hgb Conc. 33.1 g/dL (33.0-37.0); Mean Corpuscular Volume 89.1 fL (80.0-94.0); Nucleated Red Blood Cells % 0 % (-); Platelet Count 361 10^3/uL (130-400); Red Cell Dist. Width 12.8 % (11.5-14.5)
[2025-04-17 01:41] LABS: Blood Urea Nitrogen 21 mg/dl (9-20); Calcium 9.4 mg/dl (8.4-10.2); Carbon Dioxide 28 mmol/L (22-30); Chloride 104 mmol/L (98-107); Glucose 96 mg/dl (70-99); Potassium 4.0 mmol/L (3.5-5.1); Sodium 142 mmol/L (135-145); eGFR > 60.00
[2025-04-17] MEDS: TORADOL 15 MG IV (01:52)
[2025-04-17 02:25] VITALS: BP 173/93
== END 2025-04-17 02:31 | disposition home or self-care (01) ==
LOC: EMR 00:08
PROVIDERS: EMERGENCY PHYSICIAN Emergency Medicine; FAMILY PHYSICIAN Family Medicine
DX: K08.9 Disorder of teeth and supporting structures, unspecified (principal); D72.829 Elevated white blood cell count, unspecified; I10 Essential (primary) hypertension; G20.A1 Parkinson's disease without dyskinesia, without mention of fluctuations; F17.200 Nicotine dependence, unspecified, uncomplicated
CPT/HCPCS: 99284; 96365; 96375; 80048; 85025